=== PATIENT | female | born 1950 | race African-American/Black ===

== ENCOUNTER 2016-04-06 11:04 | Emergency (ER) | payer MEDICARE, BC ==
[~2016-04-06] VITALS: Ht 162.6 cm; Wt 54.5 kg
[~2016-04-06 11:04] MED LIST: AMLO5TAB96 PO; FISH1000 PO
[2016-04-06 11:06] VITALS: BP 133/93; PULSE 72; RESP 16; TEMP 97.8; O2SAT 99
--- NOTE | 2016-04-06 11:13 | PD ---
HPI Chief Complaint: discolaration of R thumb Time Seen by Provider: 11:10 Travel History International Travel<30 days: No Contact w/Intl Traveler<30days: No Traveled to known affect area: No History of Present Illness HPI 65 year old female presents to the ED for evaluation of discoloration fo the distal right thumb. This started last evening after gardening. No pain. No fever or chills. No alteration in sensation. No other symptoms to report PFSH Past Medical History Autoimmune Disease: No Blood Disorders: No Cancer: Yes (BREAST) Cardiovascular Problems: No Diabetes: No Endocrine: No Genitourinary: No Musculoskeletal: No Neurologic: No Psychiatric: No Respiratory: No Social History Alcohol Use: No Tobacco Use: No Substance Use: No Allergies-Medications (Allergen,Severity, Reaction): Coded Allergies: Latex (Verified Allergy, Severe, RASH AND LUMPS, 04/06/16) Reported Meds & Prescriptions Reported Meds & Active Scripts Active Reported Amlodipine (Amlodipine Besylate) 5 Mg Tab 5 Mg PO DAILY Review of Systems Except as stated in HPI: all other systems reviewed are Neg Physical Exam Narrative GENERAL: Well-nourished, well-developed male patient, ambulatory and in no acute distress SKIN: Warm and dry. The distal centimeter of the right thumb is darkened. It is blanchable. No induration. There is no edema. HEAD: Normocephalic. EYES: No scleral icterus. No injection or drainage. NECK: Supple, trachea midline. No JVD or lymphadenopathy. CARDIOVASCULAR: Regular rate and rhythm without murmurs, gallops, or rubs. RESPIRATORY: Breath sounds equal bilaterally. No accessory muscle use. MUSCULOSKELETAL: No cyanosis, or edema. Cap refill within normal limits. Distal pulses are palpable. Patient has full flexion extension of the affected digit. Data Data Last Documented VS Vital Signs Date Time Temp Pulse Resp B/P Pulse Ox O2 Delivery O2 Flow Rate FiO2 04/06/16 11:06 97.8 72 16 133/93 99 Room Air MDM Medical Decision Making Medical Screen Exam Complete: Yes Emergency Medical Condition: Yes Medical Record Reviewed: Yes Differential Diagnosis HYPERpigmentation versus vascular insufficiency versus occlusive disease Narrative Course 65 year-old female presents to the emergency department for evaluation of discoloration of her distal right thumb. The area is neurovascularly intact. It is darkened skin the hand is warm. It is not painful per her. I offered reassurance but here the emergency department there is not a lot for us to do for her. I've encouraged her to follow-up with a primary care provider and return if it worsened Diagnosis Primary Impression: Discoloration of skin Referrals: Primary Care Physician Patient Instructions: Normal Exam (ED) Additional Instructions: Follow up with your primary care provider Return immediately with any acute worsening of symptoms Med/Other Pt SpecificInfo: No Change to Meds Disposition: 01 DISCHARGE HOME Condition: Stable Candace Mora Apr 06, 2016 11:13
[2016-04-06] MEDS ORDERED: AMLO5TAB2 PO (11:31)
== END 2016-04-06 11:51 | disposition home or self-care (01) ==
LOC: NETRI 11:04
DX: L81.9 Disorder of pigmentation, unspecified (principal)
CPT/HCPCS: 99283